=== PATIENT | male | born 1950 | race Hispanic/Latino ===

== ENCOUNTER 2017-10-10 14:39 | Emergency (ER) | payer MEDICARE ==
[2017-10-10 14:56] VITALS: BP 126/78
[2017-10-10] MEDS ORDERED: ASPIRIN PO ONE (14:56)
[2017-10-10 15:13] LABS: Basophils # (Auto) 0.1 K/mm3 (0.0-0.1); Basophils % (Auto) 1.1 % (0.0-1.8); Eosinophils % (Auto) 0.6 % (0.0-4.3); Hematocrit 32.7 % (35.5-45.6); Hemoglobin 11.3 gm/dl (11.8-15.2); Lymphocytes % (Auto) 33.9 % (13.4-35.0); Mean Corpuscular HGB Conc 35 % (32-34); Mean Corpuscular Hemoglobin 31 pg (28-32); Mean Corpuscular Volume 90 fl (84-94); Monocytes # (Auto) 0.8 K/mm3 (0.0-0.8); Monocytes % (Auto) 13.6 % (0.0-7.3); Platelet Count 189 K/mm3 (140-440); Red Blood Count 3.62 M/mm3 (3.65-5.03); Red Cell Distribution Width 13.6 % (13.2-15.2)
[2017-10-10 15:22] LABS: BUN/Creatinine Ratio 28; Blood Urea Nitrogen 33 mg/dL (9-20); Calcium 8.7 mg/dL (8.4-10.2); Hemolysis Index 0
--- NOTE | 2017-10-10 18:14 | Emergency Department Report ---
ED General Adult HPI - General Chief complaint: Chest Pain Stated complaint: CHEST/STOMACH PAIN Time Seen by Provider: 10/10/17 17:50 Source: patient Mode of arrival: Ambulatory Limitations: No Limitations - History of Present Illness Initial comments: Patient presents to the emergency Department for chief complaint of weakness and dark stools. Patient states he went to see his physician on Friday and had a normal checkup and upon awaking on Friday morning he began to have nausea and vomiting and his states that he broke out into a intense sweat. Patient denies having chest pain or shortness of breath doing these episodes. Patient states he had one episode of vomiting on Friday but was nauseated all day long. Upon awakening this morning the patient had a bowel movement that was dark in nature which she states she's never happened before. He states since Friday he has felt fatigued and has had a lack of energy. Patient states he had a normal colonoscopy in June with removal of 11 polyps which were benign. Patient denies any chest pain currently, shortness of breath , or abdominal pain. Patient denies taking Imodium, Pepto-Bismol, Mylanta, iron supplements. - Related Data Allergies Allergy/AdvReac Type Severity Reaction Status Date / Time No Known Allergies Allergy Verified 10/10/17 14:52 ED Review of Systems ROS: Stated complaint: CHEST/STOMACH PAIN Other details as noted in HPI Comment: All other systems reviewed and negative Constitutional: denies: chills, fever Eyes: denies: eye pain, eye discharge, vision change ENT: denies: ear pain, throat pain Respiratory: denies: cough, shortness of breath, wheezing Cardiovascular: denies: chest pain, palpitations Endocrine: no symptoms reported Gastrointestinal: denies: abdominal pain, nausea, diarrhea Genitourinary: denies: urgency, dysuria Musculoskeletal: denies: back pain, joint swelling, arthralgia Skin: denies: rash, lesions Neurological: denies: headache, weakness, paresthesias Psychiatric: denies: anxiety, depression Hematological/Lymphatic: denies: easy bleeding, easy bruising ED Past Medical Hx - Past Medical History Previous Medical History?: No - Surgical History Past Surgical History?: No - Social History Smoking Status: Current Every Day Smoker Substance Use Type: None ED Physical Exam - General Limitations: No Limitations General appearance: alert, in no apparent distress - Head Head exam: Present: atraumatic, normocephalic - Eye Eye exam: Present: normal appearance - ENT ENT exam: Present: mucous membranes moist - Neck Neck exam: Present: normal inspection - Respiratory Respiratory exam: Present: normal lung sounds bilaterally. Absent: respiratory distress, wheezes, rales, rhonchi - Cardiovascular Cardiovascular Exam: Present: regular rate, normal rhythm. Absent: systolic murmur, diastolic murmur, rubs, gallop - GI/Abdominal GI/Abdominal exam: Present: soft, normal bowel sounds. Absent: distended, tenderness - Rectal Rectal exam: Present: deferred, other (patient politely declined rectal exam) - Extremities Exam Extremities exam: Present: normal inspection - Back Exam Back exam: Present: normal inspection - Neurological Exam Neurological exam: Present: alert, oriented X3, CN II-XII intact. Absent: motor sensory deficit - Psychiatric Psychiatric exam: Present: normal affect, normal mood - Skin Skin exam: Present: warm, dry, intact, normal color. Absent: rash ED Course Vital Signs 10/10/17 14:53 Temperature 97.9 F Pulse Rate 107 H Respiratory 16 Rate Blood Pressure 126/78 O2 Sat by Pulse 96 Oximetry ED Medical Decision Making - Lab Data Result diagrams: 10/10/17 14:57 10/10/17 14:57 - EKG Data Rate: tachycardia - EKG Data Interpretation: no acute changes - Medical Decision Making Patient's labs were discussed in detail along with plan of care. The patient had an hemoglobin of 11.3 and a recent colonoscopy that was normal was decided that the patient will rather go home and follow with his primary care physician. Levi Friday. Patient states he will return if his symptoms become worse or if he begins to have abdominal pain or bright red blood per rectum. The weakness the patient describes is diffuse without any focal neurological findings on physical exam or during history Critical care attestation.: If time is entered above; I have spent that time in minutes in the direct care of this critically ill patient, excluding procedure time. ED Disposition Clinical Impression: Fatigue, Dark stools Disposition: DC-01 TO HOME OR SELFCARE Is pt being admited?: No Does the pt Need Aspirin: No Condition: Stable Instructions: Fatigue (ED) Additional Instructions: Return if you become lightheaded, her stools increase in nature, or Bright red blood per rectum. Also return if he began to have abdominal pain. Referrals: PRIMARY CARE, [Primary Care Provider] - 3-5 Days LALI PACKER MD [Staff Physician] - 3-5 Days Time of Disposition: 18:16
== END 2017-10-10 18:35 | disposition home or self-care (01) ==
LOC: ED 14:39
DX: R53.83 Other fatigue (principal); R19.5 Other fecal abnormalities; F17.200 Nicotine dependence, unspecified, uncomplicated
CPT/HCPCS: 36415; 80048; 84484; 85025; 93005; 93010